=== PATIENT | male | born 1975 | race Caucasian/White ===

== ENCOUNTER 2021-12-29 23:16 | Emergency (ER) | payer OTHER, SELFPAY ==
[2021-12-29] MEDS ORDERED: Acetaminophen/HYDROcodone 325-5 MG Tab PO STA (23:38)
== END 2021-12-30 | disposition home or self-care (01) ==
LOC: FB.ED 23:16
DX: S01.112A Laceration without foreign body of left eyelid and periocular area, initial encounter (principal); W26.8XXA Contact with other sharp object(s), not elsewhere classified, initial encounter
CPT/HCPCS: 12011; 99282; A9270